=== PATIENT | male | born 1980 | race Hispanic/Latino ===

== ENCOUNTER → 2018-08-06 | Outpatient (CLI) | payer OTHER ==
[~2018-08-06] MED LIST: IOHEXOL-350 75 ML VIAL IV ONE
== END | disposition home or self-care (01) ==
LOC: RAH 10:32
PROVIDERS: ATTEND Internal Medicine Hematology & Oncology
DX: K45.8 Other specified abdominal hernia without obstruction or gangrene (principal); K76.9 Liver disease, unspecified; R18.8 Other ascites; J90 Pleural effusion, not elsewhere classified
CPT/HCPCS: 74178; Q9967